=== PATIENT | female | born 2005 | race Caucasian/White ===

== ENCOUNTER 2025-02-27 23:10 | Emergency (ER) | payer BC ==
[2025-02-27] MEDS ORDERED: Bacitracin 1 PK ONE (23:31)
== END 2025-02-27 23:45 | disposition home or self-care (01) ==
LOC: CSHERS 23:10
DX: S91.332A Puncture wound without foreign body, left foot, initial encounter (principal); Z23 Encounter for immunization; W26.8XXA Contact with other sharp object(s), not elsewhere classified, initial encounter
CPT/HCPCS: 90471; 90715